=== PATIENT | male | born 1940 | race Caucasian/White ===

== ENCOUNTER → 2016-07-25 | Outpatient (CLI) | payer MEDICARE, OTHER ==
[2008-03-04 09:44] VITALS: BP 103/72
[~2016-07-25] VITALS: Ht 177.8 cm; Wt 112.3 kg
[~2016-07-25] MED LIST: ALDACTONE25 MG PO; ALDACTONE50 MG PO; ANTIVERT 25MG25 MG PO; ASPIR-LOW81 MG PO; ASPIR-LOX325 MG PO; ASPIRIN 81M81 MG/TA2 PO; ASPIRIN E.C. 8181 MG PO; CARDIZEM CD 12120 MG PO; COUMADIN 5MG5 MG/TAB PO; COUMADIN1 MG PO; COUMADIN4 MG PO; COUMADIN5 M1 PO; FERROUS SU325 MG/TAB PO; FOLIC ACID PO; GLUCOSAMINE & C1 CA1 PO; HCTZ 25MG25 MG PO; LASIX 40MG TABL40 MG PO; LASIX40 MG PO; LISINOPRIL20 MG PO; LOPRESSOR 225 MG/TAB PO; LOVENOX 100100 MG/ML SQ; LOVENOX 4040 MG/0.4 SQ; MASON NATURAL1200 MG PO; MULTIPLE VITAMI1 CAP PO; MULTIPLE VITAMI1 TA5 PO; PREDNISONE10 MG PO; SUPER EPA 1201200 MG PO; SYNTHROID0.05 MG/TA PO; TOPROL XL 50MG50 MG PO; VITAMIN C BUFF500 MG PO; VITAMIN C500 MG PO
[2016-07-25 12:31] VITALS: BP 146/82; PULSE 89
[2016-07-25 12:51] LABS: INR 1.1 (0.8-3.0); PROTHROMBIN TIME 12.5 SECONDS (9.7-12.8)
[2016-07-25 14:51] VITALS: BP 151/94; PULSE 78
== END ==
LOC: COL.RAD 11:57
PROVIDERS: Orthopaedic Surgery Orthopaedic Surgery of the Spine
DX: M54.5 Low back pain (principal); M51.36 Other intervertebral disc degeneration, lumbar region; M19.90 Unspecified osteoarthritis, unspecified site; M48.06 Spinal stenosis, lumbar region; J44.9 Chronic obstructive pulmonary disease, unspecified; G47.30 Sleep apnea, unspecified; Z79.01 Long term (current) use of anticoagulants; E07.9 Disorder of thyroid, unspecified; I10 Essential (primary) hypertension; Z95.810 Presence of automatic (implantable) cardiac defibrillator; Z79.899 Other long term (current) drug therapy; Z79.82 Long term (current) use of aspirin
CPT/HCPCS: J3301

== ENCOUNTER → 2016-08-18 | Outpatient (CLI) | payer MEDICARE, OTHER | LOC: COL.RAD 15:00 | DX: N28.1 Cyst of kidney, acquired (principal); R91.8 Other nonspecific abnormal finding of lung field | CPT/HCPCS: Q9967 ==

== ENCOUNTER → 2016-09-06 | Outpatient (CLI) | payer MEDICARE, OTHER ==
[2008-03-04 09:44] VITALS: BP 103/72
[~2016-09-06] VITALS: Ht 177.8 cm; Wt 110.5 kg
[2016-09-06 13:59] VITALS: BP 144/90; PULSE 77
[2016-09-06 14:18] VITALS: BP 146/81; PULSE 74
== END ==
LOC: COL.RAD 09-01 07:00
DX: M54.5 Low back pain (principal)
CPT/HCPCS: J3301

== ENCOUNTER → 2016-12-08 | Outpatient (CLI) | payer MEDICARE, OTHER | LOC: COL.RAD 09:21 | DX: I83.93 Asymptomatic varicose veins of bilateral lower extremities (principal); I51.7 Cardiomegaly; R09.89 Other specified symptoms and signs involving the circulatory and respiratory systems; K44.9 Diaphragmatic hernia without obstruction or gangrene; K57.30 Diverticulosis of large intestine without perforation or abscess without bleeding; N40.0 Benign prostatic hyperplasia without lower urinary tract symptoms; K76.89 Other specified diseases of liver; M79.605 Pain in left leg; Z90.49 Acquired absence of other specified parts of digestive tract | CPT/HCPCS: Q9967 ==

== ENCOUNTER 2018-01-12 13:03 | Outpatient (CLI) | payer MEDICARE, OTHER ==
[2008-03-04 09:44] VITALS: BP 103/72
[~2018-01-12] VITALS: Ht 177.8 cm; Wt 107.7 kg
[2018-01-12 14:13] LABS: HEMATOCRIT 38.8 % (42.0-52.0); HEMOGLOBIN 12.8 g/dl (13.5-18.0); MEAN CELL VOLUME 102 fl (80.0-100.0); MEAN CORPUSCULAR HEMOGLOBIN 34 pg (27.0-31.0); MEAN CORPUSCULAR HGB CONC 33 g/dl (33.0-37.0); MEAN PLATELET VOLUME 9.6 fl (7.4-10.4); PLATELET COUNT 202 K/mm3 (130-400); RED BLOOD COUNT 3.81 M/mm3 (4.20-5.60); REDCELL DISTRIBUTION WIDTH-CV 13.4 % (11.5-14.5)
[2018-01-12] MEDS ORDERED: PROSCAR 5MG5 MG PO (14:15)
[2018-01-12] MEDS ORDERED: ZESTRIL 10MG10 MG PO (14:15)
[2018-01-12] MEDS ORDERED: IMDUR 60MG60 MG/TAB PO (14:16)
[2018-01-12] MEDS ORDERED: K-DUR 10 MEQ T10 MEQ PO (14:17)
[2018-01-12] MEDS ORDERED: LASIX 20MG TABL20 MG PO (14:17)
[2018-01-12] MEDS ORDERED: TYLENOL 325MG325 MG PO (14:18)
[2018-01-12] MEDS ORDERED: ALEVE 220MG220 MG PO (14:19)
[2018-01-12] MEDS ORDERED: LEVAQUIN 5500 MG/TA1 PO (14:20)
[2018-01-12 14:21] LABS: CALCIUM 8.9 mg/dL (8.4-10.2); CREATININE, serum 0.84 mg/dL (0.66-1.25); POTASSIUM 4.3 mmol/L (3.4-5.0)
[2018-01-12] MEDS ORDERED: PREDNISONE20 MG PO (14:21)
[2018-01-12 14:23] VITALS: BP 107/69; PULSE 76
[2018-01-12 14:26] LABS: PROTHROMBIN TIME 22.5 SECONDS (9.7-12.8)
[2018-01-12] MEDS ORDERED: GLUCOSAMINE 1000 (14:33)
[2018-01-12] MEDS ORDERED: KAPSPARGO SPRIN25 MG PO (15:18)
[2018-01-12 15:40] VITALS: BP 111/73; PULSE 71
[2018-01-12 15:50] VITALS: BP 125/60; PULSE 37
[2018-01-12 16:10] VITALS: BP 117/69; PULSE 89
[2018-01-12 16:25] VITALS: BP 110/61; PULSE 74
[2018-01-12 16:40] VITALS: BP 107/63; PULSE 67
== END 2018-01-12 16:30 | disposition home or self-care (01) ==
LOC: COL.RAD 13:03
PROVIDERS: Internal Medicine Cardiovascular Disease
DX: I50.21 Acute systolic (congestive) heart failure (principal); I07.1 Rheumatic tricuspid insufficiency; I34.0 Nonrheumatic mitral (valve) insufficiency; Z95.0 Presence of cardiac pacemaker
CPT/HCPCS: G9654; J2704

== ENCOUNTER 2018-06-08 10:45 | Outpatient (CLI) | payer MEDICARE ==
[~2018-06-08 10:45] MED LIST changes: +ALEVE 220MG220 MG PO; +GLUCOSAMINE 1000; +IMDUR 60MG60 MG/TAB PO; +K-DUR 10 MEQ T10 MEQ PO; +KAPSPARGO SPRIN25 MG PO; +LASIX 20MG TABL20 MG PO; +LEVAQUIN 5500 MG/TA1 PO; +PREDNISONE20 MG PO; +PROSCAR 5MG5 MG PO; +TYLENOL 325MG325 MG PO; +ZESTRIL 10MG10 MG PO
[2018-06-08 13:15] VITALS: BP 103/60; PULSE 68
--- NOTE | 2018-06-08 13:15 | NUR ---
Report from Alexander Daily RN post SIVAN. Pt amalia SIVAN well. Pt A and O x 4, at bedside.
[2018-06-08 13:30] VITALS: BP 112/60; PULSE 60
[2018-06-08 13:45] VITALS: BP 107/53; PULSE 62
[2018-06-08 14:00] VITALS: BP 115/61; PULSE 63
--- NOTE | 2018-06-08 14:10 | NUR ---
Pt has ambulated, voided and amalia PO intake s v/n. PIV removed from R AC with catheter intact.
--- NOTE | 2018-06-08 14:40 | NUR ---
Pt discharge per w/c by nurse with .
[2018-06-08 17:29] LABS: CALCIUM 9.5 mg/dL (8.4-10.2); CREATININE, serum 1.22 mg/dL (0.66-1.25)
[2018-06-08 20:24] LABS: INR 1.3 (0.8-3.0); PROTHROMBIN TIME 14.3 SECONDS (9.7-12.8)
[2018-06-08 22:00] LABS: HEMOGLOBIN 13.2 g/dl (13.5-18.0); MEAN CELL VOLUME 97 fl (80.0-100.0); MEAN CORPUSCULAR HEMOGLOBIN 32 pg (27.0-31.0); MEAN CORPUSCULAR HGB CONC 33 g/dl (33.0-37.0); MEAN PLATELET VOLUME 9.8 fl (7.4-10.4); PLATELET COUNT 215 K/mm3 (130-400); RED BLOOD COUNT 4.12 M/mm3 (4.20-5.60); REDCELL DISTRIBUTION WIDTH-CV 13.8 % (11.5-14.5)
== END 2018-06-08 15:30 | disposition home or self-care (01) ==
LOC: COL.RAD 10:45
PROVIDERS: Internal Medicine Interventional Cardiology
DX: I50.22 Chronic systolic (congestive) heart failure (principal)
CPT/HCPCS: J2704